=== PATIENT | female | born 2000 | race Hispanic/Latino ===

== ENCOUNTER 2020-12-18 16:26 | Observation (INO) | payer MEDICAID ==
[~2020-12-18] VITALS: Ht 162.6 cm; Wt 110.2 kg
[2020-12-18 17:04] LABS: APPEARANCE,URINE Cloudy (CLEAR); BILIRUBIN,URINE Negative (NEGATIVE); COLOR,URINE Dark Yellow (YELLOW); GLUCOSE, URINE (UA) Negative (NEGATIVE); KETONES,URINE Trace mg/dL (NEGATIVE); LEUKOCYTE ESTERASE ,URINE Moderate (NEGATIVE); NITRATE,URINE Negative (NEGATIVE); OCCULT BLOOD,URINE Negative (NEGATIVE); PH,URINE 5.5 (5.0-8.0); PROTEIN,URINE POS 1+ mg/dL (NEGATIVE)
[2020-12-18 17:11] LABS: AMPHET/METH SCREEN,URINE NEGATIVE (NEGATIVE); BARBITURATE SCREEN, URINE NEGATIVE (NEGATIVE); BENZODIAZEPINES SCREEN,URINE NEGATIVE (NEGATIVE); CANNABINOID SCREEN,URINE NEGATIVE (NEGATIVE); COCAINE SCREEN,URINE NEGATIVE (NEGATIVE); OPIATE SCREEN,URINE NEGATIVE (NEGATIVE); PHENCYCLIDINE SCREEN,URINE NEGATIVE (NEGATIVE)
[2020-12-18 17:43] LABS: BACTERIA,URINE Few /HPF (None Seen); CALCIUM OXALATE CRYSTALS,UR Many /LPF (None Seen); RBC,URINE None Seen /HPF (0-1)
[2020-12-18] MEDS ORDERED: ACETAMINOPHEN EXTRA STRENGTH 500 MG TABLET PO SCH (18:45)
== END 2020-12-18 19:30 | disposition home or self-care (01) ==
LOC: EDH 16:26 → LDH 16:27
PROVIDERS: ADMIT Obstetrics & Gynecology; ATTEND Obstetrics & Gynecology
DX: O62.9 Abnormality of forces of labor, unspecified (principal); O48.0 Post-term pregnancy; Z90.49 Acquired absence of other specified parts of digestive tract; Z3A.40 40 weeks gestation of pregnancy
CPT/HCPCS: 59025; 76805; 80305; 81001; 87077; 87088; 87186; 99284; G0378 ×3

== ENCOUNTER 2020-12-20 19:56 | Inpatient (IN) | payer MEDICAID ==
[~2020-12-20] VITALS: Ht 162.6 cm; Wt 109.8 kg
[2020-12-20] MEDS ORDERED: PREN-196 PO (20:13)
[2020-12-20 20:26] VITALS: BP 142/86
[2020-12-20 20:33] LABS: APPEARANCE,URINE Cloudy (CLEAR); BILIRUBIN,URINE Negative (NEGATIVE); COLOR,URINE Yellow (YELLOW); GLUCOSE, URINE (UA) Negative (NEGATIVE); KETONES,URINE Negative (NEGATIVE); LEUKOCYTE ESTERASE ,URINE Moderate (NEGATIVE); NITRATE,URINE Negative (NEGATIVE); OCCULT BLOOD,URINE Negative (NEGATIVE); PROTEIN,URINE POS 1+ mg/dL (NEGATIVE)
[2020-12-20 20:40] LABS: AMPHET/METH SCREEN,URINE NEGATIVE (NEGATIVE); BARBITURATE SCREEN, URINE NEGATIVE (NEGATIVE); BENZODIAZEPINES SCREEN,URINE NEGATIVE (NEGATIVE); CANNABINOID SCREEN,URINE NEGATIVE (NEGATIVE); COCAINE SCREEN,URINE NEGATIVE (NEGATIVE); OPIATE SCREEN,URINE NEGATIVE (NEGATIVE); PHENCYCLIDINE SCREEN,URINE NEGATIVE (NEGATIVE)
[2020-12-20 20:50] LABS: BACTERIA,URINE Moderate /HPF (None Seen); MUCUS,URINE Few LPF (None Seen); SQUAMOUS EPITHELIAL CELL,UR Moderate /HPF (0-2)
[2020-12-20] MEDS ORDERED: LACTATED RINGERS 1000ML 1,000 ML IV PRN (21:45)
[2020-12-20] MEDS: LACTATED RINGERS 1000ML 1,000 ML IV SCH (21:50)
[2020-12-20] MEDS ORDERED: AMPICILLIN 2GM+NS 100ML 100 ML IV ONE (22:01)
[2020-12-20 22:11] LABS: HEMATOCRIT 31.4 % (36-48); MEAN CORPUSCULAR HGB CONC 30.6 g/dL (32.0-36.0); MEAN CORPUSCULAR VOLUME 75.1 fL (80-100); PLATELET COUNT (AUTO) 281 K/uL (130-400); RED BLOOD CELL COUNT(AUTO) 4.18 MIL/uL (4.00-5.50); RED CELL DISTRIBUTION WIDTH 16.3 % (11.0-15.5); WHITE BLOOD COUNT (AUTO) 9.8 K/uL (4.8-10.8)
[2020-12-20] MEDS ORDERED: BUTORPHANOL TARTRATE 2 MG/ML IVP ONE (23:30)
[2020-12-20] MEDS ORDERED: BUTORPHANOL TARTRATE 2 MG/ML ONE (23:35)
[2020-12-21] VITALS (9 sets, daily range): BP systolic 96–123; BP diastolic 43–90
[2020-12-21] MEDS ORDERED: AMPICILLIN 1GM+NS 50ML 50 ML IV ONE ×2 (02:00→05:37)
[2020-12-21] MEDS ORDERED: OXYTOCIN-LR 20 UNITS/1000 ML 1,000 ML IV ONE (08:54)
[2020-12-21] MEDS ORDERED: OXYTOCIN-LR 20 UNITS/1000 ML 1,000 ML IV SCH (09:00)
[2020-12-21 10:11] LABS: RAPID PLASMA REAGIN NONREACTIVE (NONREACTIVE)
[2020-12-21] MEDS ORDERED: FENTANYL CITRATE PF 50 MCG/1 ML 2ML VIAL ONE (11:04)
[2020-12-21] MEDS ORDERED: BENZOCAINE/LANOLIN/ALOE VERA 60 ML AEROSOL TP PRN (12:45)
[2020-12-21] MEDS ORDERED: DIPH,PERTUSS(ACELL),TET VAC/PF 0.5 ML VIAL IM PRN (12:45)
[2020-12-21] MEDS ORDERED: MEASLES/MUMPS/RUBELLA VACCINE, LIVE 0.5 ML/VIAL SQ PRN (12:45)
[2020-12-21] MEDS ORDERED: WITCH HAZEL 1 PAD TP PRN (12:45)
[2020-12-21] MEDS ORDERED: LANOLIN 30GM OINTMENT TP PRN (12:45)
[2020-12-21] MEDS ORDERED: ACETAMINOPHEN WITH CODEINE 1 TAB TAB PO PRN (12:45)
[2020-12-21] MEDS ORDERED: ACETAMINOPHEN 325 MG TAB PO PRN (12:45)
[2020-12-21] MEDS ORDERED: OXYTOCIN-LR 20 UNITS/1000 ML 1,000 ML IV PRN (15:15)
[2020-12-21] MEDS: IBUPROFEN 600 MG TABLET PO PRN ×2 (16:50→23:53)
[2020-12-21] MEDS: DOCUSATE SODIUM 100 MG CAP PO SCH (20:14)
[2020-12-21] MEDS: LACTATED RINGERS 1000ML 1,000 ML IV SCH (20:15)
[2020-12-21] MEDS: AMPICILLIN 1GM+NS 50ML 50 ML IV SCH ×2 (21:45→22:20)
[2020-12-22 03:31] VITALS: BP 96/55
[2020-12-22] MEDS: LACTATED RINGERS 1000ML 1,000 ML IV SCH (04:15)
[2020-12-22] MEDS: AMPICILLIN 1GM+NS 50ML 50 ML IV SCH (04:31)
[2020-12-22 06:47] LABS: HEMATOCRIT 30.3 % (36-48); MEAN CORPUSCULAR HGB CONC 30.4 g/dL (32.0-36.0); MEAN CORPUSCULAR VOLUME 75.8 fL (80-100); RED CELL DISTRIBUTION WIDTH 16.2 % (11.0-15.5); WHITE BLOOD COUNT (AUTO) 9.7 K/uL (4.8-10.8)
[2020-12-22 07:29] VITALS: BP 101/60
[2020-12-22] MEDS: DOCUSATE SODIUM 100 MG CAP PO SCH (07:32)
[2020-12-22] MEDS: IBUPROFEN 600 MG TABLET PO PRN (07:33)
[2020-12-22 08:14] LABS: HEPATITIS Bs ANTIGEN SCREEN P Negative (Negative)
[2020-12-22 11:45] VITALS: BP 111/58
== END 2020-12-22 14:20 | disposition home or self-care (01) | DRG 560 ==
LOC: EDH 19:56 → OBSVTOIN 19:57 → LDH 19:57 → WSH 12-21 12:41
PROVIDERS: ADMIT Obstetrics & Gynecology; ATTEND Obstetrics & Gynecology
PROC: 10E0XZZ Delivery of Products of Conception, External Approach (ICD-10-PCS; principal; 2020-12-21)
PROC: 0HQ9XZZ Repair Perineum Skin, External Approach (ICD-10-PCS; 2020-12-21)
PROC: 3E0134Z Introduction of Serum, Toxoid and Vaccine into Subcutaneous Tissue, Percutaneous Approach (ICD-10-PCS; 2020-12-21)
PROC: 3E0234Z Introduction of Serum, Toxoid and Vaccine into Muscle, Percutaneous Approach (ICD-10-PCS; 2020-12-21)
PROC: 3E0R3BZ Introduction of Anesthetic Agent into Spinal Canal, Percutaneous Approach (ICD-10-PCS; 2020-12-21)
PROC: 00HU33Z Insertion of Infusion Device into Spinal Canal, Percutaneous Approach (ICD-10-PCS; 2020-12-21)
PROC: 10907ZC Drainage of Amniotic Fluid, Therapeutic from Products of Conception, Via Natural or Artificial Opening (ICD-10-PCS; 2020-12-21)
DX: O99.214 Obesity complicating childbirth (principal); O70.0 First degree perineal laceration during delivery; Z3A.40 40 weeks gestation of pregnancy; Z37.0 Single live birth; Z23 Encounter for immunization; E66.9 Obesity, unspecified
CPT/HCPCS: 36415; 59025; 76805; 80305; 81001; 85027; 86592; 86701; 86850; 86900; 86901; 87077; 87088; 87186; 87340; 87390; 96360; A4314; A4606; G0378; J0290; J0595; J2590; J3010; J7120